=== PATIENT | male | born 1945 | race Two or more races ===

== ENCOUNTER 2017-03-08 09:39 | Emergency (ER) | payer OTHER ==
[2017-03-08] MEDS ORDERED: Lidocaine 2% 10 ML* VIAL INJ ONE (10:16)
[2017-03-08] MEDS ORDERED: Tetan/Diph/Pertus SYR(Tdap)* 0.5 ML SYR(BOOSTRIX) use SYR IM ONE (10:18)
[2017-03-08] MEDS ORDERED: Lidocaine 2% PF* 5 ML VIAL ONE (10:21)
--- NOTE | 2017-03-08 10:25 | UC ---
Skin Complaint HPI - HPI Summary HPI Summary: 71 yo gentleman presents for eval / management s/p t/f over reyes this morning approx 2am, striking L brow on chair. No loc. Applied H2O2 at the time. No vis / aud changes. No dizzy. No n/v. No paresthesia / dysesthesia. Last tet unclear. - History of Current Complaint Chief Complaint: UCLaceration Time Seen by Provider: 03/08/17 10:02 Stated Complaint: LACERATION Hx Obtained From: Patient Onset/Duration: Sudden Onset Skin Exposure Onset/Duration: Hours Ago - Allergy/Home Medications Allergies/Adverse Reactions: Allergies Allergy/AdvReac Type Severity Reaction Status Date / Time No Known Allergies Allergy Verified 11/28/13 12:01 Review of Systems Constitutional: Negative Skin: Other - see hpi Eyes: Negative - see hpi ENT: Negative Respiratory: Negative Cardiovascular: Negative Gastrointestinal: Negative Genitourinary: Negative Motor: Negative Neurovascular: Negative Musculoskeletal: Negative - no neck pain Neurological: Negative Psychological: Negative All Other Systems Reviewed And Are Negative: Yes PMH/Surg Hx/FS Hx/Imm Hx Previously Healthy: Yes - except see below Endocrine History Of: Denies: Diabetes, Thyroid Disease Cardiovascular History Of: Denies: Cardiac Disorders, Hypertension Respiratory History Of: Denies: COPD, Asthma GI/ History Of: Denies: Ulcer - Surgical History Surgical History: Yes Surgery Procedure, Year, and Place: Hernia repair, Cataract lens implants bilateral. - Family History Known Family History: Positive: Hypertension - Social History Alcohol Use: Occasionally Substance Use Type: None Smoking Status (MU): Current Some Day Smoker Household Exposure Type: Cigarettes - Immunization History Most Recent Tetanus Shot: unknown Physical Exam Triage Information Reviewed: Yes Appearance: Well-Appearing, Well-Nourished Vital Signs: Initial Vital Signs Temp 95.8 F 03/08/17 09:55 Pulse 82 03/08/17 09:55 Resp 16 03/08/17 09:55 BP 150/86 03/08/17 09:55 Pulse Ox 96 03/08/17 09:55 Vital Signs Reviewed: Yes Eye Exam: Normal - see skin ENT Exam: Normal Neck exam: Normal Neck: Positive: Supple, Nontender Respiratory Exam: Normal - no tachypnea / dyspnea Cardiovascular Exam: Normal Abdominal Exam: Normal Abdomen Description: Positive: Nontender Musculoskeletal Exam: Normal - gait steady Neurological Exam: Normal - CN 1- 12 intact, including LT periwound. Psychological Exam: Normal Skin Exam: Other - 1.5cm lac R brow. + full thickness, with small necrotic irreg skin border. Oozing very little (during exam), bleeding controlled w/ pressure. No cellulitis appreciated. Laceration Repair - Laceration Repair 1 Description: Irregular Laceration Size After Repair: Length (cm) - 1.5, Width (mm) - 0.5cm, Depth (mm) - 1.0cm Modified For Repair: Yes Type Injection: Local Anesthesia Used: 2.0% Lido Cleansing Completed Via Routine Prep: Yes Irrigation With Pressure Irrigation Device: No Closure Material: Sutures Closure Method: Single Layer Suture Of: SQ Suture Type: Prolene - 4.0 Course/Dx - Course Course Of Treatment: All appropriate time out(s) performed. Wound irrigated. Wound repaired via usual sterile technique. Five 5.0 prolene sutures placed. Tolerated procedure well. Reviewed WC instructions and f/u instructions, and need for recheck sooner if worse or new problems. Questions answered to the best of my ability. Blood pressure moderately elevated - followed by pcp, recommended f/u 4 weeks for recheck. - Diagnoses Provider Diagnoses: R eyebrow/facial laceration Discharge - Discharge Plan Condition: Stable Disposition: HOME Referrals: [facility] [place] [facility]IAN REFERRAL [Outside] Additional Instructions: Please follow up with your primary care provider per routine. Seek medical attention for worsening problems in the meantime. Your blood pressure reading today was 150/86, which is HYPERTENSIVE. Establish with a primary care provider and follow-up within 4 weeks for blood pressure readings and further evaluation. If you cannot find a provider, try to check your blood pressure on your own and see if its above 120/80. If so, follow up for further evaluation and treatment.IF YOU NEED A HEALTH CARE PROVIDER CALL: LM MORGAN AT [facility] [place] IN THE NEXT FOUR DAYS: [phone] Wound care : avoid hydrogen peroxide, rubbing alcohol etc. Thin layer polysporin once daily. Ok to shower / wash face (please avoid direct scrub) starting in 2 days. Light cover guaze / tape. Follow up here or with your primary care physician in 2 days for wound check. Suture removal approx one week. Avoid direct sun exposure to wound site now and indefinitely thereafter.
[2017-03-08 11:46] VITALS: BP 147/96
== END 2017-03-08 11:30 | disposition home or self-care (01) ==
LOC: UCEAST 09:39
DX: S01.111A Laceration without foreign body of right eyelid and periocular area, initial encounter (principal); W01.190A Fall on same level from slipping, tripping and stumbling with subsequent striking against furniture, initial encounter; Y93.9 Activity, unspecified; Y92.9 Unspecified place or not applicable; Z72.0 Tobacco use
CPT/HCPCS: 12011; 90471; 90715; 99202; G0463; J2001

== ENCOUNTER 2017-03-11 18:17 | Emergency (ER) | payer OTHER ==
[2017-03-11 18:32] VITALS: BP 145/91
--- NOTE | 2017-03-11 18:44 | UC ---
Skin Complaint HPI - HPI Summary HPI Summary: here for re-check laceration 3 days ago in right eye brow---some scabbing patient has not been washing wound at all - History of Current Complaint Chief Complaint: UCWounds Time Seen by Provider: 03/11/17 18:45 Stated Complaint: WOUND RECHECK Hx Obtained From: Patient Onset/Duration: Sudden Onset, Lasting Days - 3, Still Present Skin Exposure Onset/Duration: Days Ago - 3 Timing: Constant Onset Severity: Moderate Current Severity: None Pain Intensity: 0 Pain Scale Used: 0-10 Numeric Location: Discrete - right eye brow Aggravating: Nothing Alleviating: Nothing Associated Signs & Symptoms: Positive: Negative Related History: Trauma - 3 days ago - Allergy/Home Medications Allergies/Adverse Reactions: Allergies Allergy/AdvReac Type Severity Reaction Status Date / Time No Known Allergies Allergy Verified 03/11/17 18:31 Review of Systems Constitutional: Negative Skin: Other - healing scabbed wound right eye brow Eyes: Negative ENT: Negative Respiratory: Negative Cardiovascular: Negative Gastrointestinal: Negative Genitourinary: Negative Motor: Negative Neurovascular: Negative Musculoskeletal: Negative Neurological: Negative Psychological: Negative All Other Systems Reviewed And Are Negative: Yes PMH/Surg Hx/FS Hx/Imm Hx Previously Healthy: Yes Endocrine History Of: Denies: Diabetes, Thyroid Disease Cardiovascular History Of: Denies: Cardiac Disorders, Hypertension Respiratory History Of: Denies: COPD, Asthma GI/ History Of: Denies: Ulcer - Surgical History Surgical History: Yes Surgery Procedure, Year, and Place: Hernia repair, Cataract lens implants bilateral, ORIF LEFT ANKLE - Family History Known Family History: Positive: Hypertension - Social History Occupation: Student Lives: With Family Alcohol Use: Occasionally Substance Use Type: None Smoking Status (MU): Former Smoker Household Exposure Type: Cigarettes - Immunization History Most Recent Tetanus Shot: 03/08/17 Physical Exam Triage Information Reviewed: Yes Appearance: Well-Appearing, No Pain Distress, Well-Nourished Vital Signs: Initial Vital Signs Temp 98.6 F 03/11/17 18:27 Pulse 82 03/11/17 18:27 Resp 16 03/11/17 18:27 BP 145/91 03/11/17 18:27 Vital Signs Reviewed: Yes Eye Exam: Normal Eyes: Positive: Conjunctiva Clear ENT Exam: Normal ENT: Positive: Normal ENT inspection, Hearing grossly normal, Pharynx normal, TMs normal. Negative: Nasal congestion, Nasal drainage, Tonsillar swelling, Tonsillar exudate, Trismus, Muffled/hoarse voice Neck exam: Normal Neck: Positive: Supple, Nontender Respiratory Exam: Normal Respiratory: Positive: Chest non-tender, Lungs clear, Normal breath sounds, No respiratory distress, No accessory muscle use Cardiovascular Exam: Normal Cardiovascular: Positive: RRR, No Murmur, Pulses Normal, Brisk Capillary Refill Musculoskeletal Exam: Normal Musculoskeletal: Positive: Strength Intact, ROM Intact, No Edema Neurological Exam: Normal Neurological: Positive: Alert, Muscle Tone Normal, Fatigued Psychological Exam: Normal Psychological: Positive: Normal Response To Family Skin Exam: Other Skin: Positive: Other - healing wounf in right eye brow Course/Dx - Course Course Of Treatment: laceration care gentle soap and water, follow in 4 days as planned for suture removal - Differential Diagnoses - Skin Complaint Differential Diagnoses: Cellulitis, Other - healing wound - Diagnoses Provider Diagnoses: Healing wound Discharge - Discharge Plan Condition: Stable Disposition: HOME Patient Education Materials: Care For Your Stitches (ED), Laceration (ED), DASH Eating Plan (ED), Hypertension (ED) Referrals: Yaquelin Ames MD [Primary Care Provider] - 2 Weeks
== END 2017-03-11 18:51 | disposition home or self-care (01) ==
LOC: UCEAST 18:17
DX: S01.111D Laceration without foreign body of right eyelid and periocular area, subsequent encounter (principal); X58.XXXD Exposure to other specified factors, subsequent encounter; Y92.9 Unspecified place or not applicable; Z87.891 Personal history of nicotine dependence
CPT/HCPCS: 99211; G0463

== ENCOUNTER 2017-03-17 07:13 | Emergency (ER) | payer OTHER ==
[2017-03-17 07:33] VITALS: BP 143/87
--- NOTE | 2017-03-17 07:41 | UC ---
HPI Wound/Suture Re-check - HPI Summary HPI Summary: PT HERE FOR SUTURE REMOVAL. HAD [address] RIGHT EYEBROW 03/08/17. NO PROBLEMS. HEALING WELL. - History Of Current Complaint Stated Complaint: STITCH REMOVAL-EYEBROW Time Seen by Provider: 03/17/17 07:32 Hx Obtained From: Patient Onset/Duration: Sudden Onset Severity: Mild Pain Intensity: 0 Pain Scale Used: 0-10 Numeric - Allergies/Home Medications Allergies/Adverse Reactions: Allergies Allergy/AdvReac Type Severity Reaction Status Date / Time No Known Allergies Allergy Verified 03/11/17 18:31 PMH/Surg Hx/FS Hx/Imm Hx Previously Healthy: Yes Endocrine History Of: Denies: Diabetes, Thyroid Disease Cardiovascular History Of: Denies: Cardiac Disorders, Hypertension Respiratory History Of: Denies: COPD, Asthma GI/ History Of: Denies: Ulcer - Surgical History Surgical History: Yes Surgery Procedure, Year, and Place: Hernia repair, Cataract lens implants bilateral, ORIF LEFT ANKLE - Family History Known Family History: Positive: Hypertension - Social History Alcohol Use: Occasionally Substance Use Type: None Smoking Status (MU): Former Smoker Household Exposure Type: Cigarettes - Immunization History Most Recent Influenza Vaccination: UNKNOWN Most Recent Tetanus Shot: 03/08/17 Review of Systems Constitutional: Negative Skin: Other - SUTURES IN PLACE RIGHT EYEBROW Respiratory: Negative Cardiovascular: Negative Gastrointestinal: Negative All Other Systems Reviewed And Are Negative: Yes Physical Exam Triage Information Reviewed: Yes Appearance: Well-Appearing, No Pain Distress, Well-Nourished Vital Signs: Initial Vital Signs Temp 97.9 F 03/17/17 07:27 Pulse 70 03/17/17 07:27 Resp 16 03/17/17 07:27 BP 143/87 03/17/17 07:27 Pulse Ox 97 03/17/17 07:27 Vital Signs Reviewed: Yes Eyes: Positive: Conjunctiva Clear ENT: Positive: Hearing grossly normal Neck: Positive: Supple Respiratory: Positive: No respiratory distress, No accessory muscle use Cardiovascular: Positive: Pulses Normal Abdomen Description: Positive: Soft Musculoskeletal: Positive: No Edema Neurological: Positive: Alert Psychological: Positive: Age Appropriate Behavior Skin: Positive: Other - RIGHT EYEBROW LACERATION HEALING WELL. EDGES C/D/I. [address] SIMPLE INTER[address]ED [address]UTURES IN PL[address]. Course/Dx - Course Course Of Treatment: 5 SUTURES REMOVED WITHOUT COMPLICATION - Differential Dx - Laceration/Wound Provider Diagnoses: SUTURE REMOVAL Discharge - Discharge Plan Condition: Stable Disposition: HOME Patient Education Materials: Stitches Removal (ED) Referrals: Yaquelin Ames MD [Primary Care Provider] - If Needed Additional Instructions: YOUR BP WAS ELEVATED AGAIN TODAY. PLEASE FOLLOW-UP WITH YOUR PCP WITHIN 4 WEEKS FOR RE-EVALUATION.
== END 2017-03-17 07:49 | disposition home or self-care (01) ==
LOC: UCEAST 07:13
DX: S01.111D Laceration without foreign body of right eyelid and periocular area, subsequent encounter (principal); X58.XXXD Exposure to other specified factors, subsequent encounter; Y92.9 Unspecified place or not applicable; Z98.42 Cataract extraction status, left eye; Z98.41 Cataract extraction status, right eye; Z96.1 Presence of intraocular lens; Z87.891 Personal history of nicotine dependence
CPT/HCPCS: 99211; G0463